=== PATIENT | male | born 1965 | race Two or more races ===

== ENCOUNTER 2021-09-05 10:48 | Emergency (ER) | payer SELFPAY ==
[~2021-09-05] VITALS: Ht 170.2 cm; Wt 68.0 kg
[~2021-09-05 10:48] MED LIST: DARU800T2 PO; DIPH12.56 PO; EMTR1TAB12 PO; FLUC150T PO; HYDR-3974 PO; LOPE2CAP40 PO; Nystatin PO; RALT400T PO; RITO100T PO
--- NOTE | 2021-09-05 10:48 | NUR ---
TO ER BED 14. BIBS C/O STAPH INFECTION ON R SHOULDER X4 MONTHS, LUNGS FEELING TIGHT, AND HEADACHE. VITALS ARE WITHIN NORMAL LIMITS, NO RESP DISTRESS NOTED, OXYGEN SATURATION 99% ON ROOM AIR. AWAITING MD ESTRELLA.
[2021-09-05] MEDS ORDERED: LIDOCAINE 1% INJ 50 ML MDV IJ ONE ×2 (11:34→12:00)
[2021-09-05] MEDS ORDERED: BACI/NEOM/POLY B OINT PKT 1 UDPKT PACKET TP ONE (12:00)
--- NOTE | 2021-09-05 12:00 | NUR ---
THE PATIENT REFUSED COVID PCR SWAB DESPITE EXPLAINING RISKS AND BENEFITS.
[2021-09-05] MEDS ORDERED: CEPH500C2 PO (12:19)
[2021-09-05] MEDS ORDERED: DOXY100C2 PO (12:19)
[2021-09-05 12:49] VITALS: BP 118/67
--- NOTE | 2021-09-05 12:49 | NUR ---
Patient discharged to home in stable condition. Written and verbal after care instructions given. Patient verbalizes understanding of instruction.
== END 2021-09-05 12:50 | disposition home or self-care (01) ==
LOC: ER 10:48
DX: L02.411 Cutaneous abscess of right axilla (principal); J06.9 Acute upper respiratory infection, unspecified; I10 Essential (primary) hypertension; E11.9 Type 2 diabetes mellitus without complications; Z88.1 Allergy status to other antibiotic agents; Z88.2 Allergy status to sulfonamides; Z88.6 Allergy status to analgesic agent; Z88.8 Allergy status to other drugs, medicaments and biological substances; Z79.899 Other long term (current) drug therapy
CPT/HCPCS: 10060; 76882; 99284; A6407; J3490

== ENCOUNTER 2022-02-09 23:14 | Emergency (ER) | payer SELFPAY ==
[~2022-02-09] VITALS: Ht 170.2 cm; Wt 79.4 kg
[~2022-02-09 23:14] MED LIST changes: +CEPH500C2 PO; +DOXY100C2 PO
--- NOTE | 2022-02-09 23:32 | NUR ---
SINCERE FROM [facility] FOR GENERALIZED BODY PAIN AFTER DOING METH. PT AWAKE AND ALERT BREATHING UNALBORED. TACHY IN 110S. CHANGED INTO GOWN AND PLACED ON MONITOR SAFETY MEASURES IN PLACE SITTER AT BEDSIDE.
[2022-02-10] MEDS ORDERED: LORAZEPAM INJ 2 MG/ML VIAL ONE (00:01)
--- NOTE | 2022-02-10 00:15 | NUR ---
IV ACCESS SECURED ON L HAND#22; PATENT, INTACT AND FLUSHING WELL.
[2022-02-10] MEDS: IV NS 0.9% 2,000 ML IV ONE (00:24)
[2022-02-10] MEDS: LORAZEPAM INJ 2 MG/ML VIAL IV ONE (00:24)
[2022-02-10 02:50] LABS: BASOPHILS % (AUTO) 0.5 % (0.0-2.0); HEMATOCRIT 39 % (39-51); HEMOGLOBIN 13.3 g/dL (13.5-17.5); LYMPHOCYTES % (AUTO) 16.2 % (20.0-44.0); MEAN CORPUSCULAR HGB CONC 34 g/dl (31.0-36.0); MEAN CORPUSCULAR VOLUME 90 fL (80-96); MONOCYTES # (AUTO) 0.7 K/uL (0.1-1.30); MONOCYTES % (AUTO) 10.5 % (2.0-12.0); NEUTROPHILS # (AUTO) 4.2 K/uL (1.8-8.9); NEUTROPHILS % (AUTO) 67.8 % (43.0-81.0); PLATELET COUNT (AUTO) 215 K/uL (150-450); RED BLOOD CELL COUNT(AUTO) 4.37 MIL/uL (4.5-6.0); WHITE BLOOD COUNT (AUTO) 6.3 K/uL (4.3-11.0)
[2022-02-10 03:01] LABS: ALANINE AMINOTRANSFERASE 21 U/L (12-78); ALBUMIN 3.3 g/dL (3.4-5.0); ALCOHOL, BLOOD < 3 mg/dL (0-0); ALKALINE PHOSPHATASE 107 U/L (46-116); ASPARTATE AMINOTRANSFERASE 10 U/L (15-37); BILIRUBIN,DIRECT 0.2 mg/dL (0.0-0.2); BILIRUBIN,TOTAL 0.6 mg/dL (0.2-1.0); CALCIUM, SERUM 8.9 mg/dL (8.5-10.1); CARBON DIOXIDE 24 mmol/L (21-32); CHLORIDE 98 mmol/L (98-107); CREATININE 0.9 mg/dL (0.6-1.3); GLUCOSE 348 mg/dL (74-106); POTASSIUM 3.8 mmol/L (3.5-5.1); SODIUM SERUM 132 mmol/L (136-145); TOTAL PROTEIN, SERUM 8.3 g/dL (6.4-8.2); UREA NITROGEN, BLOOD 19 mg/dL (7-18)
[2022-02-10 03:12] LABS: ACETAMINOPHEN 0 ug/ml (10-30)
--- NOTE | 2022-02-10 03:52 | NUR ---
PT IS MARKED FOR DISCHARGE BUT PT IS STILL DROWSY AND UNABLE TO GET OUT OF BED. PT WAS MEDICATED WITH ATIVAN.
--- NOTE | 2022-02-10 06:41 | NUR ---
PT IS STILL UNSTEADY ON GAIT UPON TEST AMBULATION
--- NOTE | 2022-02-10 09:29 | NUR ---
PATIENT STILL UNABLE TO WALK STEADILY
--- NOTE | 2022-02-10 13:13 | NUR ---
ASSISTED PT OUT OF BED BUT STILL UNABLE TO STAND NOR AMBULATE
--- NOTE | 2022-02-10 17:52 | NUR ---
Patient given written and verbal discharge instructions. Patient verbalizes understanding of instructions. Patient is ambulatory with steady gait. Refuses offer of [facility] placement. Patient given list of available shelters in surrounding area. Name band removed, in proper clothing upon discharge. Tap card provided
[2022-02-10 17:54] VITALS: BP 142/84
== END 2022-02-10 17:55 | disposition home or self-care (01) ==
LOC: ER 23:21
DX: F15.90 Other stimulant use, unspecified, uncomplicated (principal); I10 Essential (primary) hypertension; E11.9 Type 2 diabetes mellitus without complications; F17.200 Nicotine dependence, unspecified, uncomplicated; Z88.1 Allergy status to other antibiotic agents; Z88.2 Allergy status to sulfonamides; Z88.6 Allergy status to analgesic agent; Z88.8 Allergy status to other drugs, medicaments and biological substances; Z79.899 Other long term (current) drug therapy; Z59.00 Homelessness unspecified
CPT/HCPCS: 99285; 80307; 96374; 96361; 85025; 80048; 82550; 80076; 80143; 80320; J2060; J7030; 36415; G0480

== ENCOUNTER 2022-07-03 21:28 | Emergency (ER) | payer SELFPAY ==
[~2022-07-03] VITALS: Ht 170.2 cm; Wt 59.0 kg
--- NOTE | 2022-07-03 23:16 | NUR ---
PT BIBSELF C/O SWOLLEN BILATERAL LOWER EXTREMITIES AND HANDS X 3 DAYS. PT BREATHING EVENLY AND UNLABORED. PT ATTACHED TO MONITOR AND POX. WILL CONTINUE TO MONITOR.
[2022-07-03 23:49] LABS: BASOPHILS # (AUTO) 0.1 K/uL (0.0-0.2); BASOPHILS % (AUTO) 1.1 % (0.0-2.0); EOSINOPHILS % (AUTO) 4.2 % (0.0-6.0); HEMATOCRIT 35 % (39-51); HEMOGLOBIN 11.5 g/dL (13.5-17.5); LYMPHOCYTES # (AUTO) 1.8 K/uL (0.8-4.8); LYMPHOCYTES % (AUTO) 32.7 % (20.0-44.0); MEAN CORPUSCULAR HGB CONC 33 g/dl (31.0-36.0); MEAN CORPUSCULAR VOLUME 91 fL (80-96); MONOCYTES # (AUTO) 0.5 K/uL (0.1-1.30); PLATELET COUNT (AUTO) 232 K/uL (150-450); WHITE BLOOD COUNT (AUTO) 5.6 K/uL (4.3-11.0)
[2022-07-03 23:58] LABS: CALCIUM, SERUM 9.3 mg/dL (8.5-10.1); CARBON DIOXIDE 28 mmol/L (21-32); CHLORIDE 98 mmol/L (98-107); CREATININE 1.2 mg/dL (0.6-1.3); GLUCOSE 281 mg/dL (74-106); POTASSIUM 4.1 mmol/L (3.5-5.1); SODIUM SERUM 135 mmol/L (136-145); UREA NITROGEN, BLOOD 36 mg/dL (7-18)
[2022-07-04 00:06] LABS: ALANINE AMINOTRANSFERASE 39 U/L (12-78); ALKALINE PHOSPHATASE 84 U/L (46-116); ASPARTATE AMINOTRANSFERASE 22 U/L (15-37); BILIRUBIN,DIRECT 0.1 mg/dL (0.0-0.2); BILIRUBIN,TOTAL 0.2 mg/dL (0.2-1.0); TOTAL PROTEIN, SERUM 7.4 g/dL (6.4-8.2)
--- NOTE | 2022-07-04 02:00 | NUR ---
Patient discharged to home in stable condition. Written and verbal after care instructions given. Patient verbalizes understanding of instruction. Pt ambulatory with a steady gait
[2022-07-04 02:04] VITALS: BP 140/89
== END 2022-07-04 02:00 | disposition home or self-care (01) ==
LOC: ER 21:31
DX: R60.0 Localized edema (principal); I10 Essential (primary) hypertension; E11.9 Type 2 diabetes mellitus without complications; F17.200 Nicotine dependence, unspecified, uncomplicated; Z88.2 Allergy status to sulfonamides; Z88.8 Allergy status to other drugs, medicaments and biological substances; Z79.899 Other long term (current) drug therapy
CPT/HCPCS: 36415; 71045-TC; 80048-TC; 80076-TC; 83880; 84484-TC; 85025-TC; 93970-TC

== ENCOUNTER 2025-01-17 14:29 | Emergency (ER) | payer MEDICAID ==
[~2025-01-17] VITALS: Ht 172.7 cm; Wt 64.9 kg
[2025-01-17] MEDS: IV NS 0.9% 1,000 ML BAG IV ONE (15:25)
[2025-01-17 15:32] LABS: PLATELET COUNT (AUTO) 351 K/uL (150-450); RED BLOOD CELL COUNT(AUTO) 4.06 MIL/uL (4.5-6.0); RED CELL DISTRIBUTION WIDTH 14.0 % (11.5-15.0); WHITE BLOOD COUNT (AUTO) 8.1 K/uL (4.3-11.0)
[2025-01-17 15:40] LABS: CALCIUM, SERUM 8.8 mg/dL (8.5-10.1); CREATININE 1.1 mg/dL (0.6-1.3); SODIUM SERUM 140 mmol/L (136-145); UREA NITROGEN, BLOOD 22 mg/dL (7-18)
[2025-01-17 15:45] LABS: ASPARTATE AMINOTRANSFERASE 11 U/L (15-37); TOTAL PROTEIN, SERUM 8.2 g/dL (6.4-8.2)
[2025-01-17] MEDS ORDERED: AMOX-430 PO (18:26)
[2025-01-17] MEDS: AMOX/CLAVULANATE 875 MG TABLET PO ONE (18:56)
[2025-01-17 19:11] VITALS: BP 133/87; TEMP 97.8; O2SAT 100
== END 2025-01-17 19:12 | disposition home or self-care (01) ==
LOC: ER 14:35
DX: K52.9 Noninfective gastroenteritis and colitis, unspecified (principal); E11.9 Type 2 diabetes mellitus without complications; F17.200 Nicotine dependence, unspecified, uncomplicated; I10 Essential (primary) hypertension; Z79.624 Long term (current) use of inhibitors of nucleotide synthesis; Z88.1 Allergy status to other antibiotic agents; Z88.2 Allergy status to sulfonamides; Z88.6 Allergy status to analgesic agent
CPT/HCPCS: 99285; 74176; 96360; 93005; 85025; 80048; 83690; 80076; 36415; 84484; J7030

== ENCOUNTER 2025-02-13 18:43 | Emergency (ER) | payer MEDICAID ==
[~2025-02-13] VITALS: Ht 165.1 cm; Wt 74.8 kg
[~2025-02-13 18:43] MED LIST changes: +AMOX-430 PO
[2025-02-13 19:03] VITALS: BP 131/68; O2SAT 99
[2025-02-13] MEDS ORDERED: ACETAMINOPHEN ES 500 MG TABLET ONE (19:32)
[2025-02-13] MEDS: ACETAMINOPHEN ES 500 MG TABLET PO ONE (19:49)
[2025-02-13 21:15] VITALS: TEMP 98.4
[2025-02-13] MEDS ORDERED: ACET325C7 PO (21:33)
== END 2025-02-13 22:05 | disposition home or self-care (01) ==
LOC: ER 19:09
DX: M16.0 Bilateral primary osteoarthritis of hip (principal); E11.9 Type 2 diabetes mellitus without complications; F15.10 Other stimulant abuse, uncomplicated; F17.200 Nicotine dependence, unspecified, uncomplicated; I10 Essential (primary) hypertension; Z79.624 Long term (current) use of inhibitors of nucleotide synthesis; Z88.1 Allergy status to other antibiotic agents; Z88.2 Allergy status to sulfonamides; Z88.6 Allergy status to analgesic agent; W18.30XA Fall on same level, unspecified, initial encounter; Y93.89 Activity, other specified; Y92.89 Other specified places as the place of occurrence of the external cause; Y99.8 Other external cause status
CPT/HCPCS: 73502; 73552